=== PATIENT | male | born 1965 | race Caucasian/White ===

== ENCOUNTER 2025-02-05 10:24 | Outpatient (CLI) | payer BC, SELFPAY ==
[2025-02-05 15:00] LABS: Hematocrit 46.9 % (42.0-52.0); Hemoglobin 15.1 g/dL (14.1-18.0); Immature Granulocytes % 0.5 %; Mean Corpuscular HGB Conc 32.2 g/dL (31.8-35.4); Mean Corpuscular Hemoglobin 27.5 pg (27.0-31.2); Mean Corpuscular Volume 85.4 fl (80-94); Nucleated Red Blood Cells % 0 %; Platelet Count 237 K/mm3 (142-424); Red Blood Count 5.49 M/mm3 (4.60-6.20); Red Cell Distribution Width-SD 41.8 fL; White Blood Count 8.4 K/mm3 (4.8-10.8)
[2025-02-05 15:27] LABS: Alanine Aminotransferase 50 U/L (12-78); Albumin Level 4.7 g/dl (3.5-5.0); Albumin/Globulin Ratio 1.2 (1.1-1.8); Alkaline Phosphatase 139 U/L (38-126); Anion Gap 18.2 mEq/L (5-15); Aspartate Amino Transferase 50 U/L (17-59); Bilirubin,Total 0.8 mg/dl (0.2-1.3); Blood Urea Nitrogen 14 mg/dl (9-20); Calcium 9.7 mg/dl (8.4-10.2); Carbon Dioxide 27 mmol/L (22.0-30.0); Chloride 98 mmol/L (98-107); Cholesterol 152 mg/dl (140-200); Creatinine,Serum 1.20 mg/dl (0.66-1.25); Estimated Glomerular Filt Rate 62 ml/min (>60); GFR (African American) 75 ML/MIN (>60); Globulin 3.8 g/dL (1.3-3.2); Glucose 128 mg/dl (74-100); HDL Cholesterol 36 mg/dl (40-60); Potassium 5.2 mmoL/L (3.5-5.1); Sodium 138 mmol/L (136-145); Total Protein,Serum 8.5 g/dl (6.3-8.2); Triglycerides 181 mg/dl (30-150)
[2025-02-05 15:55] LABS: Thyroid Stimulating Hormone 2.05 uIU/mL (0.465-4.68)
[2025-02-05 16:09] LABS: Hepatitis C Ab Qual. W/ RFX NEGATIVE (Negative)
[2025-02-05 16:14] LABS: Vitamin B12 555 pg/mL (239-931)
[2025-02-05 17:18] LABS: Hemoglobin A1C 6.1 % (4.0-6.0)
[2025-02-07 07:11] LABS: Hepatitis B Surface Antigen Negative (Negative)
== END 2025-02-05 23:59 ==
LOC: LAB.DROPOF 02-07 10:25
PROVIDERS: PCP Nurse Practitioner; Visit Provider Nurse Practitioner
DX: I25.10 Atherosclerotic heart disease of native coronary artery without angina pectoris (principal); I10 Essential (primary) hypertension; E78.5 Hyperlipidemia, unspecified; Z95.5 Presence of coronary angioplasty implant and graft; E66.9 Obesity, unspecified; Z86.39 Personal history of other endocrine, nutritional and metabolic disease; F17.211 Nicotine dependence, cigarettes, in remission; Z12.5 Encounter for screening for malignant neoplasm of prostate; Z11.59 Encounter for screening for other viral diseases
CPT/HCPCS: 80053; 80061; 82043; 82570; 82607; 83036; 84443; 85025; 86803; 87340; 87389; G0103